=== PATIENT | female | born 1980 | race Caucasian/White ===

== ENCOUNTER 2016-08-28 17:10 | Emergency (ER) | payer OTHER ==
[~2016-08-28] VITALS: Ht 170.2 cm; Wt 67.0 kg
[~2016-08-28 17:10] MED LIST: CEPHALEXIN500 M1 PO; CHROMAGEN,1 CAPSULE PO; IBUPROFEN800 MG PO; KEFLEX500 MG PO; MEDROXYPRO150 MG/1 M IM; NARCAN4 MG NS; NO HOME MEDS; PRENATAL TABLE1 EAC3 PO; TYLENOL EXTRA500 MG PO
[2016-08-28] MEDS ORDERED: PEN-VEE K,VEET500 MG PO (18:12)
[2016-08-28] MEDS ORDERED: ULTRAM50 MG PO (18:12)
[2016-08-28 18:28] VITALS: BP 132/113
== END 2016-08-28 18:29 | disposition home or self-care (01) ==
LOC: EME 17:10
DX: K02.9 Dental caries, unspecified (principal); F11.21 Opioid dependence, in remission; F17.200 Nicotine dependence, unspecified, uncomplicated
CPT/HCPCS: 99281; 99284

== ENCOUNTER 2017-04-09 14:42 | Emergency (ER) | payer OTHER ==
[~2017-04-09] VITALS: Ht 170.2 cm; Wt 70.7 kg
[~2017-04-09 14:42] MED LIST changes: +PEN-VEE K,VEET500 MG PO; +ULTRAM50 MG PO
[2017-04-09] MEDS ORDERED: NARCAN4 MG NS (20:53)
[2017-04-09 21:01] VITALS: BP 116/55
== END 2017-04-09 21:03 | disposition home or self-care (01) ==
LOC: EME 14:42
DX: T40.1X1A Poisoning by heroin, accidental (unintentional), initial encounter (principal); F17.200 Nicotine dependence, unspecified, uncomplicated; Z88.1 Allergy status to other antibiotic agents
CPT/HCPCS: 99281; 99285; J2310